=== PATIENT | female | born 1965 | race Caucasian/White ===

== ENCOUNTER 2018-06-17 21:15 | Observation (INO) ==
[2018-06-17] MEDS ORDERED: NORMAL SALINE 1,000 ML IV ONE ×2 (21:34→23:28)
[2018-06-17] MEDS ORDERED: ONDANSETRON HCL/PF 2 MG/ML VIAL IV ONE (21:42)
--- NOTE | 2018-06-17 21:48 | ERNOTE ---
Psychological HPI - Date Date of Service: 06/17/18 - General Source: Reports: patient, family - patient present to ed with c/o alcohol and liquid tide detergent - Immun/Allergies/Home Medications Allergies/Adverse Reactions: Allergies No Known Drug Allergies Allergy (Verified 06/17/18 22:33) Home Medications: HOME MEDICATIONS Unobtainable 06/17/18 [Last Taken Unknown] - History of Present Illness Time Seen by Provider: 06/17/18 21:26 Arrived by: Reports: private car Onset/duration: Reports: continues in ED Intent: Reports: prior thoughts of suicide, wants to escape Mechanism: Reports: ingestion Situational Problems: Reports: significant other Associated Symptoms: Reports: depressed, frustrated, suicidal thoughts, specific plan Prior Treament: Reports: similar symptoms before Review of Systems - Review of Systems Constitutional: Present: See HPI, weakness, fatigue, malaise EYE: Present: no symptoms reported ENT: Present: no symptoms reported Respiratory: Present: no symptoms reported Cardiology: Present: no symptoms reported Gastrointestinal/Abdominal: Present: See HPI Genitourinary: Present: no symptoms reported Musculoskeletal: Present: no symptoms reported Skin: Present: no symptoms reported Neurological: Present: depressed, emotional problems, dizziness/light- headedness, weakness Endocrine: Present: no symptoms reported Hematologic/Lymphatic: Present: no symptoms reported Psych: Present: See HPI, anxiety, depressed, emotional problems, other - overdose Medical History (Updated 06/17/18 @ 22:00 by Maryan Green RN) History of anxiety History of depression Hx of migraines Surgical History: Surgical History (Updated 06/17/18 @ 22:32 by Maryan Green RN) No pertinent past surgical history Family History: Family History (Updated 06/17/18 @ 22:33 by Maryan Green RN) Other No pertinent family history Social History: Smoking Status Current every day smoker Alcohol Use heavy Drug Use none No Social History Section defined Psychological Exam - Exam General Appearance: Present: moderate distress, anxious, lethargic Head Exam: Present: normal inspection, no evidence of injury Neurological: Present: elevator builder II-XII nml as tested, depressed affect Thoughts/Hallucinations: Present: other - depressed affect, states she wants to Behavior/Eye Contact/Speech: Present: avoids eye contact, decreased rate of speech ENT Exam normal except (see below): Yes Eye Exam: Normal inspection: bilateral, PERRL: bilateral, EOMI: bilateral Ears, Nose, Throat: Present: dry mucous membranes, other - fruity breath smell Neck: Present: normal inspection, nontender Respiratory: Present: no respiratory distress, normal breath sounds, no accessory muscle use, chest nontender, lungs clear Cardiovascular/Chest: Present: regular rate, rhythm, no murmur, normal peripheral pulses Peripheral Pulses: Carotid (R): Normal, Carotid (L): Normal, Radial (R): Normal, Radial (L): Normal, Brachial (R): Normal, Brachial (L): Normal, Femoral (R): Normal, Femoral (L): Normal, Posterior tib (R): Normal, Posterior tib (L): Normal, Dorsalis-pedis (R): Normal, Dorsalis-pedis (L): Normal Gastrointestinal/Abdominal: Present: normal bowel sounds, nontender, nondistended, soft, no organomegaly Back Exam: Present: normal inspection, normal range of motion, no CVA tenderness, no vertebral tenderness Extremity Exam: Present: normal except - - multiple excoriation to upper and lower extremities Skin Exam: Present: normal color, warm/dry, no cyanosis Lymphatic Exam: Present: no adenopathy Progress - Date and Time Seen: Date and Time: 06/17/18 22:41 patient improved, discussed case with dr edmonds to be admitted - Results and Orders Patient's Lab Results:: I have reviewed the patient's lab results. - Vital Signs Patient's Vital Signs:: I have reviewed the patient's vital signs. Vital Signs: Vital Signs 06/17/18 21:30 Temperature 36.8 C Pulse Rate 88 Respiratory Rate 19 Blood Pressure 129/86 O2 Sat by Pulse Oximetry 98 - EKG EKG #1 EKG: NSR EKG read: Interp. by me - X-Ray X-Ray #1 X-Ray: chest Interpretation: Interp. by fl - copd, no acute process - Progress/Reassessment Progress:: Improved - Transfer of Care Expected Disposition: Admit Time Seen by Provider: 06/17/18 21:26 Plan - Plan Plan: to be admitted Departure Clinical Impression: Overdose - Departure Disposition: Still a patient Condition: Serious
[2018-06-17 21:54] LABS: Hematocrit 43.1 % (37.0-47.0); Hemoglobin 14.6 gm/dL (12.5-16.0); Mean Cell Volume 93.3 fl (78-100); Mean Corpuscular Hemoglobin 31.6 pg (27-31); Mean Corpuscular Hgb Conc 33.9 g/dl (32-36); Mean Platelet Volume 8.4 fl (8-12.5); Neutrophil # 15.9 K/mm3 (1.3-6.0); Neutrophil % 85.6 % (42-75.0); Platelet Count 468 K/mm3 (150-450); Red Blood Count 4.62 M/mm3 (4.2-5.4); Red Cell Distribution Width 14.1 % (11.5-14.0); White Blood Count 18.6 K/mm3 (4.0-10.5)
[2018-06-17 22:04] LABS: Urine Bilirubin 1 mg/dl (NEGATIVE); Urine Blood 50 /ul (NEGATIVE); Urine Ketone 15 mg/dL (NEGATIVE); Urine Nitrite Negative (NEGATIVE); Urine Protein 100 mg/dL (NEGATIVE); Urine Specific Gravity >=1.030 SP.GR. (1.005-1.010); Urine Urobilinogen Normal (NORMAL); Urine pH 5.5 pH (5.0-7.0)
[2018-06-17 22:13] LABS: ALT 28 U/L (19-67); AST 38 U/L (0-48); Albumin * 4.3 gm/dl (3.4-5.0); Alkaline Phosphatase * 75 U/L (50-170); Anion Gap 19.4 mmol/L (6.8-13.8); BUN/Creatinine Ratio 13.2 (9.0-21.6); Bilirubin, Total 0.4 mg/dL (0.0-1.1); Blood Urea Nitrogen 29 mg/dL (3-23); CK Total * 97 U/L (0-259); Ca. Corrected For Albumin 9.5 mg/dL (8.4-10.2); Calcium * 10.1 mg/dL (7.9-10.9); Chloride 100 mmol/L (97-106); Glucose * 211 mg/dL (70-110); Potassium 3.4 mmol/L (3.4-4.6); Salicylate Less than 2.8 mg/dL (2.8-20.0); Sodium 141 mmol/L (132-142); Total Protein 7.8 gm/dL (6.2-8.2)
[2018-06-17 22:15] LABS: Cocaine Ur Negative (NEGATIVE); Urine Barbiturate Negative (NEGATIVE); Urine Benzodiazepines Negative (NEGATIVE); Urine PCP Negative (NEGATIVE); Urine THC Negative (NEGATIVE)
[2018-06-17 22:16] LABS: Urine Opiates Positive (NEGATIVE)
[2018-06-17 22:16] LABS: Amylase * 120 U/L (25-115); Lipase 116 U/L (73-393)
[2018-06-17 22:21] LABS: Urine Appearance Clear (CLEAR); Urine Color Yellow; Urine WBC 0-5 /hpf (0-5)
[2018-06-17 22:22] LABS: Urine Bacteria 2+; Urine Hyaline Cast 0-5 /LPF; Urine Mucus Moderate - 2+
[2018-06-17] MEDS: NORMAL SALINE 1,000 ML IV PRN (22:59)
[2018-06-18] MEDS: CIPROFLOXACIN IN 5 % DEXTROSE 200 MG/100 ML BAG IV SCH ×2 (00:44→09:10)
[2018-06-18 05:37] LABS: Anion Gap 13.3 mmol/L (6.8-13.8); BUN/Creatinine Ratio 13.5 (9.0-21.6); Blood Urea Nitrogen 21 mg/dL (3-23); Calcium * 7.8 mg/dL (7.9-10.9); Carbon Dioxide 24.9 mmol/L (24-32.6); Chloride 109 mmol/L (97-106); Estimated Creat Clear 36.9; Glucose * 122 mg/dL (70-110); Potassium 3.2 mmol/L (3.4-4.6); Sodium 144 mmol/L (132-142); Troponin I Less than 0.017 ng/mL (0.00-0.10)
[2018-06-18] MEDS ORDERED: LOPERAMIDE HCL 2 MG CAPSULE PO PRN (06:06)
[2018-06-18] MEDS ORDERED: LORazepam 2 MG/ML DISP.SYRIN IM ONE (06:18)
[2018-06-18] MEDS ORDERED: NORMAL SALINE 1,000 ML IV ONE (06:27)
--- NOTE | 2018-06-18 06:55 | HP ---
Chief Complaint - Chief Complaint Date of Service: 06/18/18 Time of Service: 06:28 Chief Complaint: I had a panic attack and anxiety, and attempted to take my own life History of Present Illness: 53-year-old female with past medical history of depression, anxiety disorder, panic disorder, migraine headaches, alcohol abuse, suicide attempt, cigarette smoker was brought to our ER and ambulance due to an apparent suicide attempt that occurred last night at home. Patient reports that she lives with her 23-year-old son who was not home at the moment. She reports that she went into a panic attack and did not have access to her usual medications because she had lost some couple of days prior. When asked where she lost her medication patient reports that she is not sure but she suspects that she lost them while walking outside her home. So as a panic attack progressed she resorted to drinking alcohol to alleviate her symptoms, she reports that when that did not work she consumed a unknown amount of liquid Tide detergent in an attempt to take her life at the moment. Patient's son then came into this cover her somnolent, intoxicated, and not her usual self. Patient admits to multiple suicide attempts in her past and has an extensive psychiatric history, she is under the care of a psychiatrist in [facility] who prescribes her anxiolytics and antidepressants. Patient admits to not seeing a PCP in many years and is not very knowledgeable about her health. She appears disheveled and thin and malnourished. Medical History (Updated 06/17/18 @ 22:43 by Benjy Cline DO) History of anxiety History of depression Hx of migraines Surgical History: Surgical History (Updated 06/17/18 @ 22:43 by Benjy Cline DO) No pertinent past surgical history Family History: Family History (Updated 06/17/18 @ 22:33 by Maryan Green RN) Other No pertinent family history Social History: Patient Lives/Resources Home Utilized Preferred Language Romansh Do you have any voodoo or Yes: Adventism cultural preference? Smoking Status Current every day smoker Have you smoked in the past 12 Yes months Alcohol Use heavy Drug Use none No Social History Section defined Peds Patient Hx - Developmental: No Pertinent Hx Peds Patient Hx - Medical: No Pertinent Hx Peds Patient Hx - Cardiac/Respiratory: No Pertinent Hx Peds Patient Hx - Surgical: No Surgical History Patient History - Cancer: No Hx of Cancer Review Of Systems (GEN) - Review of Systems Generalized/Overall Review: Present: Weakness EENTM: Present: No Symptoms Reported Respiratory: Present: No Symptoms Reported Cardiac: Present: No Symptoms Reported Abdominal: Present: Nausea Genitourinary: Present: No Symptoms Reported Musculoskeletal: Present: No Symptoms Reported Neurological: Present: Anxiety, Depressed, Emotional Problems Skin: Present: No Symptoms Reported Endocrine: Present: No Symptoms Reported Misc: All systems neg except as marked Immunizations: IMMUNIZATION HX Immunizations Up to Date No History of Influenza Vaccine No Allergies/Adverse Reactions: Allergies Allergy/AdvReac Type Severity Reaction Status Date / Time No Known Drug Allergies Allergy Verified 06/17/18 22:33 Home Medications: HOME MEDICATIONS Unobtainable 06/17/18 [Last Taken Unknown] Exam - Exam Vital Signs: Vital Signs - Last Taken Temp 36.8 C 06/18/18 04:07 Pulse 75 06/18/18 05:00 Resp 16 06/18/18 05:00 BP 120/79 06/18/18 05:00 Pulse Ox 99 06/18/18 05:00 Constitutional: Present: Alert, Oriented x3, Cooperative, Well developed, Mild distress, Thin and frail, Looks Older than stated age ENT Exam: Present: normal ENT inspection, hearing grossly normal, pharynx normal, TMs normal Eye Exam: bilateral eye: normal inspection, PERRL, EOMI Neck: Present: non-tender, full range of motion, supple, normal inspection, trachea midline Back Exam: Present: normal inspection, no CVA tenderness, no vertebral tenderness Breasts: Present: Exam deferred Respiratory: Present: chest non-tender, lungs clear, normal breath sounds, no respiratory distress, no accessory muscle use Cardiovascular/Chest: Present: normal peripheral pulses, regular rate, rhythm, no chest tenderness, no edema, no gallop, no JVD, no murmur Peripheral Pulses: carotid (R): 3+, carotid (L): 3+, femoral (R): 3+, femoral (L): 3+ Abdomen: Present: soft, nontender, nondistended, no rebound tenderness, no masses, other - Hyperactive bowel sounds /Rectal: Present: Exam deferred, Adnexa nontender Extremity: Present: normal range of motion, non-tender, normal inspection, no pedal edema, no calf tenderness, normal capillary refill, pelvis stable Skin Exam: Present: normal color, warm/dry, no cyanosis, other - Scattered punctate lesions with excoriations on upper and lower extremities Lymphatic: Present: no adenopathy Diagnostic Studies: Abnormal Lab Results 06/17/18 06/17/18 06/17/18 Range/Units 21:50 21:50 21:50 WBC 18.6 H (4.0-10.5) K/mm3 MCH 31.6 H (27-31) pg RDW 14.1 H (11.5-14.0) % Plt Count 468 H (150-450) K/mm3 Immature Gran # (Auto) 0.08 H (0.000-0.0310) K/mm3 Neutrophils % 85.6 H (42-75.0) % Lymphocytes % 9.0 L (20-51) % Neutrophils # 15.9 H (1.3-6.0) K/mm3 pCO2 (32.0-45.0) mmHg ABG pH (7.35-7.45) Sodium (132-142) mmol/L Plasma Sodium 143 H (130-142) mmol/L Potassium (3.4-4.6) mmol/L Chloride (97-106) mmol/L Anion Gap 19.4 H (6.8-13.8) mmol/L BUN 29 H (3-23) mg/dL Creatinine 2.20 H (0.4-1.4) mg/dL Est GFR (Non-Af Amer) 25 L (60-130) mL/min Random Glucose 211 H (70-110) mg/dL Calcium (7.9-10.9) mg/dL Amylase 120 H (25-115) U/L Urine Protein (NEGATIVE) mg/dL Urine Blood (NEGATIVE) /ul Urine Bilirubin (NEGATIVE) mg/dl Prot Sulfosalicylic Acd (0) mg/dL Urine RBC (0-5) /hpf Ur Epithelial Cells (0-5) /hpf Urine Bacteria (NONE) Hyaline Casts (NONE) /LPF Urine Mucus (NONE) Salicylates Less than 2.8 L (2.8-20.0) mg/dL Urine Opiates Screen (NEGATIVE) Acetaminophen Less than 0.2 L (10.0-30.0) mcg/mL 06/17/18 06/17/18 06/17/18 Range/Units 21:58 21:58 22:09 WBC (4.0-10.5) K/mm3 MCH (27-31) pg RDW (11.5-14.0) % Plt Count (150-450) K/mm3 Immature Gran # (Auto) (0.000-0.0310) K/mm3 Neutrophils % (42-75.0) % Lymphocytes % (20-51) % Neutrophils # (1.3-6.0) K/mm3 pCO2 30.3 L (32.0-45.0) mmHg ABG pH 7.47 H (7.35-7.45) Sodium (132-142) mmol/L Plasma Sodium (130-142) mmol/L Potassium (3.4-4.6) mmol/L Chloride (97-106) mmol/L Anion Gap (6.8-13.8) mmol/L BUN (3-23) mg/dL Creatinine (0.4-1.4) mg/dL Est GFR (Non-Af Amer) (60-130) mL/min Random Glucose (70-110) mg/dL Calcium (7.9-10.9) mg/dL Amylase (25-115) U/L Urine Protein 100 H (NEGATIVE) mg/dL Urine Blood 50 H (NEGATIVE) /ul Urine Bilirubin 1 H (NEGATIVE) mg/dl Prot Sulfosalicylic Acd 2+ H (0) mg/dL Urine RBC 5-10 H (0-5) /hpf Ur Epithelial Cells 5-10 H (0-5) /hpf Urine Bacteria 2+ H (NONE) Hyaline Casts 0-5 H (NONE) /LPF Urine Mucus Moderate - 2+ H (NONE) Salicylates (2.8-20.0) mg/dL Urine Opiates Screen Positive H (NEGATIVE) Acetaminophen (10.0-30.0) mcg/mL 06/18/18 Range/Units 05:15 WBC (4.0-10.5) K/mm3 MCH (27-31) pg RDW (11.5-14.0) % Plt Count (150-450) K/mm3 Immature Gran # (Auto) (0.000-0.0310) K/mm3 Neutrophils % (42-75.0) % Lymphocytes % (20-51) % Neutrophils # (1.3-6.0) K/mm3 pCO2 (32.0-45.0) mmHg ABG pH (7.35-7.45) Sodium 144 H (132-142) mmol/L Plasma Sodium 144 H (130-142) mmol/L Potassium 3.2 L (3.4-4.6) mmol/L Chloride 109 H (97-106) mmol/L Anion Gap (6.8-13.8) mmol/L BUN (3-23) mg/dL Creatinine 1.55 H D (0.4-1.4) mg/dL Est GFR (Non-Af Amer) 37 L D (60-130) mL/min Random Glucose 122 H D (70-110) mg/dL Calcium 7.8 L (7.9-10.9) mg/dL Amylase (25-115) U/L Urine Protein (NEGATIVE) mg/dL Urine Blood (NEGATIVE) /ul Urine Bilirubin (NEGATIVE) mg/dl Prot Sulfosalicylic Acd (0) mg/dL Urine RBC (0-5) /hpf Ur Epithelial Cells (0-5) /hpf Urine Bacteria (NONE) Hyaline Casts (NONE) /LPF Urine Mucus (NONE) Salicylates (2.8-20.0) mg/dL Urine Opiates Screen (NEGATIVE) Acetaminophen (10.0-30.0) mcg/mL Laboratory Results WBC 18.6 K/mm3 (4.0-10.5) H 06/17/18 21:50 RBC 4.62 M/mm3 (4.2-5.4) 06/17/18 21:50 Hgb 14.6 gm/dL (12.5-16.0) 06/17/18 21:50 Hct 43.1 % (37.0-47.0) 06/17/18 21:50 MCV 93.3 fl (78-100) 06/17/18 21:50 MCH 31.6 pg (27-31) H 06/17/18 21:50 MCHC 33.9 g/dl (32-36) 06/17/18 21:50 RDW 14.1 % (11.5-14.0) H 06/17/18 21:50 Plt Count 468 K/mm3 (150-450) H 06/17/18 21:50 MPV 8.4 fl (8-12.5) 06/17/18 21:50 Immature Gran % (Auto) 0.40 % (0.001-0.429) 06/17/18 21:50 Immature Gran # (Auto) 0.08 K/mm3 (0.000-0.0310) H 06/17/18 21:50 85.6 % (42-75.0) H 06/17/18 21:50 9.0 % (20-51) L 06/17/18 21:50 4.8 % (0.0-9) 06/17/18 21:50 0.0 % (0.0-3.0) 06/17/18 21:50 0.2 % (0.0-1.0) 06/17/18 21:50 Nucleated RBC % 0.0 k/mm3 (0-1) 06/17/18 21:50 15.9 K/mm3 (1.3-6.0) H 06/17/18 21:50 1.67 k/mm3 (1.5-3.5) 06/17/18 21:50 0.9 k/mm3 (0.0-1.0) 06/17/18 21:50 0.0 k/mm3 (0.0-0.7) 06/17/18 21:50 Absolute Basophils 0.0 k/mm3 (0.0-0.1) 06/17/18 21:50 pCO2 30.3 mmHg (32.0-45.0) L 06/17/18 22:09 pO2 84.2 mmHg (83.0-108.0) 06/17/18 22:09 HCO3 21.5 mmol/L (21.0-28.0) 06/17/18 22:09 Total CO2 22.4 mmol/L (19.0-24.0) 06/17/18 22:09 Base Excess -1.2 mmol/L (-2.0-3.0) 06/17/18 22:09 ABG pH 7.47 (7.35-7.45) H 06/17/18 22:09 ABG O2 Sat (Measured) 97.0 % (94.0-98.0) 06/17/18 22:09 Sodium 144 mmol/L (132-142) H 06/18/18 05:15 144 mmol/L (130-142) H 06/18/18 05:15 Potassium 3.2 mmol/L (3.4-4.6) L 06/18/18 05:15 Chloride 109 mmol/L (97-106) H 06/18/18 05:15 Carbon Dioxide 24.9 mmol/L (24-32.6) 06/18/18 05:15 13.3 mmol/L (6.8-13.8) 06/18/18 05:15 BUN 21 mg/dL (3-23) 06/18/18 05:15 1.55 mg/dL (0.4-1.4) H D 06/18/18 05:15 Est GFR (Non-Af Amer) 37 mL/min (60-130) L D 06/18/18 05:15 13.5 (9.0-21.6) 06/18/18 05:15 122 mg/dL (70-110) H D 06/18/18 05:15 Calcium 7.8 mg/dL (7.9-10.9) L 06/18/18 05:15 Calcium Adj for Albumin 9.5 mg/dL (8.4-10.2) 06/17/18 21:50 Magnesium 2.0 mg/dL (1.2-2.8) 06/18/18 05:15 0.4 mg/dL (0.0-1.1) 06/17/18 21:50 AST 38 U/L (0-48) 06/17/18 21:50 ALT 28 U/L (19-67) 06/17/18 21:50 75 U/L (50-170) 06/17/18 21:50 97 U/L (0-259) 06/17/18 21:50 Less than 0.017 ng/mL (0.00-0.10) 06/18/18 05:15 7.8 gm/dL (6.2-8.2) 06/17/18 21:50 4.3 gm/dl (3.4-5.0) 06/17/18 21:50 Amylase 120 U/L (25-115) H 06/17/18 21:50 116 U/L (73-393) 06/17/18 21:50 Yellow 06/17/18 21:58 Clear (CLEAR) 06/17/18 21:58 5.5 pH (5.0-7.0) 06/17/18 21:58 Ur Specific [place] >=1.030 SP.GR. (1.005-1.010) 06/17/18 21:58 100 mg/dL (NEGATIVE) H 06/17/18 21:58 Negative mg/dL (NEGATIVE) 06/17/18 21:58 15 mg/dL (NEGATIVE) 06/17/18 21:58 50 /ul (NEGATIVE) H 06/17/18 21:58 Negative (NEGATIVE) 06/17/18 21:58 1 mg/dl (NEGATIVE) H 06/17/18 21:58 Negative (NEGATIVE) 06/17/18 21:58 Prot Sulfosalicylic Acd 2+ mg/dL (0) H 06/17/18 21:58 Normal EU/dl (NORMAL) 06/17/18 21:58 Ur Leukocyte Esterase Negative /ul (NEGATIVE) 06/17/18 21:58 5-10 /hpf (0-5) H 06/17/18 21:58 0-5 /hpf (0-5) 06/17/18 21:58 Ur Epithelial Cells 5-10 /hpf (0-5) H 06/17/18 21:58 2+ (NONE) H 06/17/18 21:58 Hyaline Casts 0-5 /LPF (NONE) H 06/17/18 21:58 Moderate - 2+ (NONE) H 06/17/18 21:58 Culture to follow 06/17/18 21:58 Salicylates Less than 2.8 mg/dL (2.8-20.0) L 06/17/18 21:50 Positive (NEGATIVE) H 06/17/18 21:58 Acetaminophen Less than 0.2 mcg/mL (10.0-30.0) L 06/17/18 21:50 Negative (NEGATIVE) 06/17/18 21:58 Ur Phencyclidine Scrn Negative (NEGATIVE) 06/17/18 21:58 Urine Amphetamine Negative (NEGATIVE) 06/17/18 21:58 U Benzodiazepines Scrn Negative (NEGATIVE) 06/17/18 21:58 Negative (NEGATIVE) 06/17/18 21:58 Negative (NEGATIVE) 06/17/18 21:58 Ethyl Alcohol Less than 3.0 mg/dL (0.0-10.0) 06/17/18 21:50 Assessment/Plan - Narrative Narrative: Patient was evaluated and the medical chart was reviewed and decision to admit to the special care unit with a diagnosis of suicide attempt, acute kidney injury, electrolyte imbalance was taken. Patient is not knowledgeable about her past medical history and admits that she has not seen a primary care doctor multiple years, we we also do not have access to her medical records to determine what her baseline GFR is. Therefore we will treat patient with aggressive IV hydration to treat her renal failure and dehydration. Patient will be placed on mailing clerk and placed on suicide precautions while in SCU. Will also administer antidiarrheals to treat ongoing diarrhea and administer potassium chloride to treat hypokalemia. Psych consult will be requested for further evaluation the patient to determine the next course of action as far as her psychiatric issues. - Assessment/Plan (1) Suicide attempt Problem: Acute (2) Panic attack Problem: Acute (3) Panic disorder Problem: Chronic (4) Depression Problem: Chronic (5) Hypokalemia Problem: Acute (6) Electrolyte imbalance Problem: Acute (7) MIRNA (acute kidney injury) Problem: Acute (8) SIRS (systemic inflammatory response syndrome) Problem: Acute
[2018-06-18] MEDS: POTASSIUM CHLORIDE IN WATER 100 ML IV SCH ×3 (07:10→08:42)
[2018-06-18] MEDS: NORMAL SALINE 1,000 ML IV PRN ×2 (07:36→16:35)
[2018-06-18 08:12] LABS: Hematocrit 36.8 % (37.0-47.0); Hemoglobin 12.2 gm/dL (12.5-16.0); Mean Cell Volume 94.8 fl (78-100); Mean Corpuscular Hemoglobin 31.4 pg (27-31); Mean Corpuscular Hgb Conc 33.2 g/dl (32-36); Mean Platelet Volume 8.4 fl (8-12.5); Neutrophil # 6.8 K/mm3 (1.3-6.0); Neutrophil % 72.9 % (42-75.0); Platelet Count 330 K/mm3 (150-450); Red Blood Count 3.88 M/mm3 (4.2-5.4); Red Cell Distribution Width 14.2 % (11.5-14.0); White Blood Count 9.3 K/mm3 (4.0-10.5)
[2018-06-18 08:21] LABS: Albumin * 3.1 gm/dl (3.4-5.0); Anion Gap 14.1 mmol/L (6.8-13.8); BUN/Creatinine Ratio 11.1 (9.0-21.6); Bilirubin, Total 0.3 mg/dL (0.0-1.1); Calcium * 7.6 mg/dL (7.9-10.9); Carbon Dioxide 24.6 mmol/L (24-32.6); Potassium 3.7 mmol/L (3.4-4.6); Total Protein 5.8 gm/dL (6.2-8.2)
[2018-06-18] MEDS: THIAMINE HCL 100 MG/ML VIAL IM SCH (09:11)
[2018-06-18] MEDS: LORazepam 0.5 MG TABLET PO PRN ×2 (11:23→23:31)
[2018-06-18] MEDS: hydrOXYzine HCL 25 MG TABLET PO PRN ×2 (11:23→19:29)
[2018-06-18] MEDS: NICOTINE 14 MG PATC TD SCH (12:55)
--- NOTE | 2018-06-18 13:50 | CONS ---
[facility] Date of Service: 06/18/18 Narrative: Patient is a 53 year old female with a reported history of panic disorder, generalized anxiety disorder, methamphetamine abuse, alcohol abuse, and major depressive disorder who presented to the emergency department on 06/17/18 after she ingested tide and rubbing alcohol in an attempt to commit suicide. Patient reports she was trying to kill herself because she couldn't handle her anxiety, panic attacks, and depression any longer. She reports she sees Dr. Lopez, a psychiatrist in [place], and he has prescribed her hydroxyzine, lorazepam, Trintellix, and Wellbutrin. Patient states she stopped taking Wellbutrin several weeks ago due to side effects. She states she also stopped taking Trintellix a couple weeks ago because she thought she it wasn't working. She then admits that she knows she did not take Trintellix long enough for it to work. She reports she last saw Dr. Lopez approximately 3 months ago. At last visit, Dr. Lopez reduced her lorazepam from TID to BID. When asked why Dr. Lopez reduced lorazepam frequency, patient states she doesn't know and she doesn't like Dr. Lopez because he keeps trying to reduce her lorazepam dose. Patient denies overusing lorazepam and denies requesting early refills of lorazepam. Patient states she would never overuse her lorazepam. Patient does note that she has been out of her lorazepam for several weeks because she lost it. She states she is not sure how she lost her lorazepam. She also states she does not frequently lose her lorazepam. Patient states her anxiety has been out of control because she ran out of her lorazepam. She also reports feeling severely depressed, losing interest in things, and having no motivation. She states a friend of hers gave her 20 hydrocodone and she has been taking one hydrocodone every few days to help decrease her anxiety. Patient also states she has been drinking more alcohol to help her cope with her anxiety and depression. Patient states she used to have a drinking problem and received alcohol abuse treatment many years ago. She states she doesn't have a drinking problem now and she only drinks when she is anxious. She also endorses feeling anxious every day and experiencing panic attacks every day. She is unable to provide an amount of alcohol she typically drinks. She states she drinks until she blacks out because she can't deal with her anxiety and depression. Patient states she has drank alcohol three times in the past two weeks. Patient reports she used to use methamphetamine and cocaine in her 20's. She denies ever receiving treatment to stop. She denies current use of illicit drugs aside from taking her friends hydrocodone every few days. Patient states she has been having frequent suicidal thoughts. She will not provide a specific plan. She states she does want to . She states she will not continue to live with this much anxiety and depression. Patient denies homicidal ideation. Patient does state she has been having difficulty sleeping. She states Dr. Lopez gives her 15 Ambien per month. She states Ambien helps with sleep. She reports her appetite is decreased. She is unsure if she has lost any weight recently. - History of Present Illness Allergies/Adverse Reactions: Allergies No Known Drug Allergies Allergy (Verified 06/17/18 22:33) Home Medications: Home Medications Medication Instructions Recorded Last Taken Bupropion HCl [Bupropion Xl] 450 mg PO DAILY 06/18/18 Unknown Hydroxyzine HCl 50 mg PO Q8H PRN 06/18/18 Unknown Hydroxyzine HCl 50 mg PO QID 06/18/18 Unknown LORazepam [Ativan] 0.5 mg PO Q12H PRN 06/18/18 Unknown Vortioxetine Hydrobromide 20 mg PO DAILY 06/18/18 Unknown [Trintellix] Zolpidem Tartrate [Ambien] 10 mg PO HS PRN 06/18/18 Unknown Medications - Medications Current Medications: Current Medications Hydroxyzine HCl (Atarax) 50 mg PO Q8H PRN PRN Reason: Anxiety Last Admin: 06/18/18 11:23 Dose: 50 mg Documented by: Sodium Chloride (Sodium Chloride 0.9%) 1,000 mls @ 125 mls/hr IV .Q8H PRN PRN Reason: HYDRATION Stop: 07/17/18 22:50 Last Admin: 06/18/18 07:36 Dose: 125 mls/hr Documented by: Ciprofloxacin/Dextrose (Cipro) 200 mg in 100 mls @ 100 mls/hr IV DAILY [facility]; Protocol Stop: 07/17/18 23:36 Last Infusion: 06/18/18 10:10 Dose: Infused Documented by: Loperamide HCl (Imodium) 2 mg PO PRN PRN PRN Reason: Diarrhea Stop: 07/18/18 06:07 Last Admin: 06/18/18 06:45 Dose: 2 mg Documented by: Lorazepam (Ativan) 0.5 mg PO Q12H PRN PRN Reason: Anxiety Stop: 07/18/18 10:56 Last Admin: 06/18/18 11:23 Dose: 0.5 mg Documented by: Nicotine (Nicoderm) 14 mg TD Q24H [facility] Stop: 07/18/18 12:46 Last Admin: 06/18/18 12:55 Dose: 14 mg Documented by: Thiamine HCl (Vitamin B-1) 100 mg IM DAILY [facility] Stop: 07/18/18 09:01 Last Admin: 06/18/18 09:11 Dose: 100 mg Documented by: Review of Systems - Review of Systems Generalized/Overall Review: Present: No Symptoms Reported Abdominal: Present: Abdominal Pain Physical Examination - Exam Vital Signs: Vital Signs - Last Taken Temp 37.0 C 06/18/18 12:00 Pulse 99 06/18/18 12:00 Resp 16 06/18/18 12:00 BP 139/68 06/18/18 12:00 Pulse Ox 98 06/18/18 12:00 O2 Oxygen Delivery Method Room Air Constitutional: Present: Alert, Oriented x3 Neurologic: Present: alert, oriented x 3, depressed affect, other - Anxious affect Appearance: Present: disheveled, impaired insight Eye contact: Present: avoids eye contact Thoughts: Present: no apparent hallucination - Results and Findings: Narrative: Patient endorses continued suicidal ideation with intent. Patient is willing to be transferred for psychiatric hospitalization. Recommend inpatient hospitalization for suicidal ideation/intent. Will discontinue Wellbutrin as patient has not been taking this medication for the past several weeks and is contraindicated considering current renal function. Continue Trintellix. Start CIWA protocol. Lab/Microbiology results last 24 hrs: Abnormal/Pending Laboratory Last 24 HRS 06/18/18 06/18/18 06/18/18 08:00 08:00 05:15 WBC RBC 3.88 L Hgb 12.2 L Hct 36.8 L MCH 31.4 H RDW 14.2 H Plt Count Immature Gran # (Auto) Neutrophils % Lymphocytes % 19.7 L Neutrophils # 6.8 H pCO2 ABG pH Sodium 145 H 144 H Plasma Sodium 145 H 144 H Potassium 3.2 L Chloride 110 H 109 H Anion Gap 14.1 H BUN Creatinine 1.53 H 1.55 H D Est GFR (Non-Af Amer) 37 L 37 L D Random Glucose 122 H D Calcium 7.6 L 7.8 L Calcium Adj for Albumin 8.0 L AST 52 H Total Protein 5.8 L Albumin 3.1 L Amylase Urine Protein Urine Blood Urine Bilirubin Prot Sulfosalicylic Acd Urine RBC Ur Epithelial Cells Urine Bacteria Hyaline Casts Urine Mucus Salicylates Urine Opiates Screen Acetaminophen 06/17/18 06/17/18 06/17/18 22:09 21:58 21:58 WBC RBC Hgb Hct MCH RDW Plt Count Immature Gran # (Auto) Neutrophils % Lymphocytes % Neutrophils # pCO2 30.3 L ABG pH 7.47 H Sodium Plasma Sodium Potassium Chloride Anion Gap BUN Creatinine Est GFR (Non-Af Amer) Random Glucose Calcium Calcium Adj for Albumin AST Total Protein Albumin Amylase Urine Protein 100 H Urine Blood 50 H Urine Bilirubin 1 H Prot Sulfosalicylic Acd 2+ H Urine RBC 5-10 H Ur Epithelial Cells 5-10 H Urine Bacteria 2+ H Hyaline Casts 0-5 H Urine Mucus Moderate - 2+ H Salicylates Urine Opiates Screen Positive H Acetaminophen 06/17/18 06/17/18 06/17/18 21:50 21:50 21:50 WBC 18.6 H RBC Hgb Hct MCH 31.6 H RDW 14.1 H Plt Count 468 H Immature Gran # (Auto) 0.08 H Neutrophils % 85.6 H Lymphocytes % 9.0 L Neutrophils # 15.9 H pCO2 ABG pH Sodium Plasma Sodium 143 H Potassium Chloride Anion Gap 19.4 H BUN 29 H Creatinine 2.20 H Est GFR (Non-Af Amer) 25 L Random Glucose 211 H Calcium Calcium Adj for Albumin AST Total Protein Albumin Amylase 120 H Urine Protein Urine Blood Urine Bilirubin Prot Sulfosalicylic Acd Urine RBC Ur Epithelial Cells Urine Bacteria Hyaline Casts Urine Mucus Salicylates Less than 2.8 L Urine Opiates Screen Acetaminophen Less than 0.2 L - Assessments/Findings (1) Suicide attempt Problem: Acute (2) Panic disorder Problem: Chronic
[2018-06-18] MEDS ORDERED: LORazepam 0.5 MG TABLET PO ONE (15:52)
[2018-06-18] MEDS: ZOLPIDEM TARTRATE 10 MG TABLET PO PRN (20:13)
[2018-06-19] MEDS: NORMAL SALINE 1,000 ML IV PRN (00:39)
[2018-06-19] MEDS: hydrOXYzine HCL 25 MG TABLET PO PRN ×3 (03:35→19:17)
[2018-06-19] MEDS: ACETAMINOPHEN 325 MG TABLET PO PRN (07:55)
[2018-06-19] MEDS: VORTIOXETINE HYDROBROMIDE 20 MG PO SCH (08:31)
--- NOTE | 2018-06-19 08:34 | PN ---
Subjective - Date and Time Seen Date: 06/19/18 Time: 08:32 Subjective Narrative: Patient has no complaints. VS are stable. Objective - Review of Systems Generalized/Overall Review: Denies: Chills, Fever EENTM: Denies: Blurred Vision Respiratory: Denies: Cough, Shortness of Breath Cardiac: Denies: Chest Pain, Edema, Palpitations Abdominal: Denies: Nausea, Vomiting Genitourinary Symptoms: Denies: Urgency, Frequency Musculoskeletal Complaints: Denies: Joint Pain, Back Pain Neurological: Reports: Anxiety, Depressed Skin: Denies: Lesions, Rash Endocrine: Denies: Intolerance to Cold, Intolerance to Heat Misc: All systems neg except as marked - Vitals Vitals: Last Vital Signs Temp 36.7 C 06/19/18 08:29 Pulse 74 06/19/18 08:29 Resp 16 06/19/18 08:29 BP 142/87 H 06/19/18 08:29 Pulse Ox 97 06/19/18 08:29 - Abnormal Lab Findings Abnormal Lab Findings: Abnormal Lab Results 06/18/18 06/18/18 Range/Units 11:22 14:17 pCO2 31.9 L (32.0-45.0) mmHg TSH 0.098 L (0.358-3.74) uIU/mL - Exam Constitutional: Present: Alert, Oriented x3, Cooperative ENT Exam: Present: hearing grossly normal Neck: Present: supple Respiratory: Present: normal breath sounds, No rales, No wheezing Cardiovascular/Chest: Present: regular rate, rhythm, no JVD, no murmur Abdomen: Present: Normal bowel sounds, soft, nontender, nondistended Extremity: Present: no pedal edema, no calf tenderness Assessment/Plan Plan Narrative: awaiting placement. continue with present management. - Problems/Diagnosis (1) Overdose Problem: Acute (2) Panic attack Problem: Acute (3) Suicide attempt Problem: Acute (4) Depression Problem: Chronic
[2018-06-19] MEDS: CIPROFLOXACIN IN 5 % DEXTROSE 200 MG/100 ML BAG IV SCH (08:43)
[2018-06-19] MEDS ORDERED: ACETAMINOPHEN 500 MG TABLET PO ONE (08:46)
[2018-06-19] MEDS ORDERED: buPROPion HCL 150 MG TAB.SR.24H PO SCH (09:00)
[2018-06-19 09:02] LABS: BUN/Creatinine Ratio 12.5 (9.0-21.6); Calcium * 8.1 mg/dL (7.9-10.9); Carbon Dioxide 27.4 mmol/L (24-32.6); Potassium 3.4 mmol/L (3.4-4.6)
[2018-06-19] MEDS: POTASSIUM CHLORIDE 10 MEQ in 0.5 NORMAL SALINE 1,000 ML IV SCH ×2 (10:08→21:18)
[2018-06-19] MEDS: ONDANSETRON 4 MG TAB.RAPDIS PO PRN (10:13)
[2018-06-19] MEDS: LORazepam 0.5 MG TABLET PO PRN ×2 (10:17→22:25)
[2018-06-19] MEDS: THIAMINE HCL 100 MG/ML VIAL IM SCH (10:54)
[2018-06-19] MEDS: NICOTINE 14 MG PATC TD SCH (12:36)
[2018-06-19] MEDS: chlordiazePOXIDE HCL 25 MG CAPSULE PO PRN (14:29)
[2018-06-19] MEDS: ZOLPIDEM TARTRATE 10 MG TABLET PO PRN (19:16)
[2018-06-20] MEDS: chlordiazePOXIDE HCL 25 MG CAPSULE PO PRN ×2 (02:55→11:54)
[2018-06-20] MEDS: hydrOXYzine HCL 25 MG TABLET PO PRN ×2 (03:35→11:54)
[2018-06-20] MEDS: ONDANSETRON 4 MG TAB.RAPDIS PO PRN (03:36)
[2018-06-20] MEDS: VORTIOXETINE HYDROBROMIDE 20 MG PO SCH (08:18)
[2018-06-20] MEDS: THIAMINE HCL 100 MG/ML VIAL IM SCH (08:25)
--- NOTE | 2018-06-20 08:59 | PN ---
Subjective - Date and Time Seen Date: 06/20/18 Time: 08:56 Subjective Narrative: complaining of bad reflux. Objective - Review of Systems Generalized/Overall Review: Denies: Chills, Fever EENTM: Denies: Nose Congestion Respiratory: Denies: Cough, Shortness of Breath Cardiac: Denies: Chest Pain, Edema, Palpitations Abdominal: Reports: Other - dyspepsia. Denies: Nausea, Vomiting Genitourinary Symptoms: Denies: Urgency, Frequency, Incontinent Musculoskeletal Complaints: Reports: Back Pain. Denies: Joint Pain Neurological: Reports: Headache, Anxiety Skin: Denies: Lesions, Rash Endocrine: Denies: Intolerance to Cold, Intolerance to Heat Misc: All systems neg except as marked - Vitals Vitals: Last Vital Signs Temp 36.0 C 06/20/18 07:00 Pulse 76 06/20/18 07:00 Resp 16 06/20/18 07:00 BP 153/89 H 06/19/18 21:00 Pulse Ox 98 06/20/18 07:00 - Abnormal Lab Findings Abnormal Lab Findings: Abnormal Lab Results 06/18/18 06/19/18 Range/Units 05:15 08:48 Sodium 144 H (132-142) mmol/L Plasma Sodium 144 H (130-142) mmol/L Chloride 110 H (97-106) mmol/L Serum Osmolality 311 H mOsm/kg - Exam Constitutional: Present: Alert, Oriented x3, Cooperative ENT Exam: Present: hearing grossly normal Neck: Present: supple Respiratory: Present: normal breath sounds, No rales, No wheezing Cardiovascular/Chest: Present: regular rate, rhythm, no JVD, no murmur Abdomen: Present: Normal bowel sounds, soft, nontender, nondistended Extremity: Present: no pedal edema, no calf tenderness Assessment/Plan Plan Narrative: awaiting placement. UCS showed no growth. IVF and antibiotics stopped. - Problems/Diagnosis (1) Dyspepsia Problem: Acute Narrative: GERD like. start PPI. (2) Overdose Problem: Acute (3) Panic attack Problem: Acute (4) Suicide attempt Problem: Acute (5) Depression Problem: Chronic
--- NOTE | 2018-06-20 10:14 | DS ---
Transfer Discharge Summary - Diagnosis(s)/Problems (1) Suicide attempt Problem: Acute (2) Overdose Problem: Acute (3) Panic attack Problem: Acute (4) Depression Problem: Chronic (5) Dyspepsia Problem: Acute - Course Description of Stay: Barbara Delacruz is a 53-year-old female with past medical history of depression, anxiety disorder, panic disorder, migraine headaches, alcohol abuse, suicide attempt, cigarette smoker was brought to our ER by ambulance due to an apparent suicide attempt that occurred at home and was admittged on 06/18/2018. The patient reported that she lives with her 23-year-old son who was not home at the moment. She reported that she went into a panic attack and did not have access to her usual medications because she had lost some couple of days prior to admission. When asked where she lost her medication patient reported that she was not sure but she suspects that she lost them while walking outside her home. So as her panic attack progressed she resorted to drinking alcohol to alleviate her symptoms, she reported that when that did not work she consumed a unknown amount of liquid Tide detergent in an attempt to take her life at the moment. The patient's son then came home and discovered her somnolent, intoxicated, and not her usual self. The patient admits to multiple suicide attempts in her past and has an extensive psychiatric history. She is under the care of a psychiatrist in [facility] who prescribes her anxiolytics and antidepressants. The patient admits to not seeing a PCP in many years and is not very knowledgeable about her health. She appeared disheveled and thin and malnourished. She was admitted to our ICU and poison control was contacted. Her UDS was negative except for opiates. Ethyl alcohol was less than 3. She had leukocytosis and UA showed pyuria/bacteuira but with 5-10 epitjheliel cells like contamination. Nevertheless she was covered with Cipro. IVF were started and her dehydration and hypokalemia resolved. WBC went down to normal the following day. Her UCS showed No Growth. Her Cipro was stopped. She was seen and evaluated by our MOLDING MACHINE TENDER in Psychology and she recommended transfer to an in patient psych facility as she continues to have persistent suicidal thoughts/ideations and attempts. She is medically stable to be transferred. She is going to [facility] in [place], [place]. Procedures Performed: none - Results and Findings Results and Findings: Laboratory Results - last 24 hr 06/18/18 05:15 Serum Osmolality 311 H - Medications Medications: Active Medications Acetaminophen (Tylenol) 650 mg PO Q6H PRN PRN Reason: Mild pain (pain scale 1-3) Stop: 07/18/18 06:24 Last Admin: 06/19/18 07:55 Dose: 650 mg Documented by: Chlordiazepoxide HCl (Librium) 50 mg PO BID PRN PRN Reason: Alcohol Withdrawal Stop: 07/18/18 09:01 Last Admin: 06/20/18 02:55 Dose: 50 mg Documented by: Hydroxyzine HCl (Atarax) 50 mg PO Q8H PRN PRN Reason: Anxiety Last Admin: 06/20/18 03:35 Dose: 50 mg Documented by: Loperamide HCl (Imodium) 2 mg PO PRN PRN PRN Reason: Diarrhea Stop: 07/18/18 06:07 Last Admin: 06/18/18 06:45 Dose: 2 mg Documented by: Lorazepam (Ativan) 0.5 mg PO Q12H PRN PRN Reason: Anxiety Stop: 07/18/18 10:56 Last Admin: 06/19/18 22:25 Dose: 0.5 mg Documented by: Nicotine (Nicoderm) 14 mg TD Q24H [facility] Stop: 07/18/18 12:46 Last Admin: 06/19/18 12:36 Dose: 14 mg Documented by: Non-Formulary Medication (Vortioxetine Hydrobromide [Trintellix]) 20 mg PO DAILY [facility] Stop: 07/19/18 09:01 Last Admin: 06/20/18 08:18 Dose: Not Given Documented by: Ondansetron HCl (Zofran Odt) 4 mg PO Q4H PRN PRN Reason: Nausea And Vomiting Stop: 07/18/18 06:58 Last Admin: 06/20/18 03:36 Dose: 4 mg Documented by: Thiamine HCl (Vitamin B-1) 100 mg IM DAILY [facility] Stop: 07/18/18 09:01 Last Admin: 06/20/18 08:25 Dose: 100 mg Documented by: Zolpidem Tartrate (Ambien) 10 mg PO HS PRN PRN Reason: Insomnia Stop: 07/18/18 10:56 Last Admin: 06/19/18 19:16 Dose: 10 mg Documented by: Discontinued Medications Acetaminophen (Tylenol) 500 mg PO ONCE ONE Stop: 06/19/18 08:47 Last Admin: 06/19/18 08:57 Dose: 500 mg Documented by: Sodium Chloride (Sodium Chloride 0.9%) 1,000 mls @ 999 mls/hr IV .Q1H1M ONE Stop: 06/17/18 22:34 Last Infusion: 06/17/18 22:52 Dose: Infused Documented by: Sodium Chloride (Sodium Chloride 0.9%) 1,000 mls @ 125 mls/hr IV .Q8H PRN PRN Reason: HYDRATION Stop: 07/17/18 22:50 Last Infusion: 06/19/18 08:39 Dose: Infused Documented by: Sodium Chloride (Sodium Chloride 0.9%) 1,000 mls @ 999 mls/hr IV .Q1H1M ONE Stop: 06/18/18 00:28 Last Infusion: 06/18/18 00:52 Dose: 0 mls/hr Documented by: Ciprofloxacin/Dextrose (Cipro) 200 mg in 100 mls @ 100 mls/hr IV DAILY [facility]; Protocol Stop: 07/17/18 23:36 Last Infusion: 06/19/18 09:43 Dose: Infused Documented by: Potassium Chloride/Water (Kcl 10 Meq/100 Ml Piggyback) 100 mls @ 100 mls/hr IV Q1H [facility] Stop: 06/18/18 09:59 Last Infusion: 06/18/18 09:11 Dose: Infused Documented by: Sodium Chloride (Sodium Chloride 0.9%) 1,000 mls @ 999 mls/hr IV .Q1H1M ONE Stop: 06/18/18 07:27 Last Infusion: 06/18/18 07:37 Dose: Infused Documented by: Potassium Chloride 10 meq/ (Sodium Chloride) 1,005 mls @ 100 mls/hr IV .Q10H3M [facility] Stop: 07/19/18 08:46 Last Admin: 06/19/18 21:18 Dose: Not Given Documented by: Lorazepam (Ativan) 1 mg IM ONCE ONE Stop: 06/18/18 06:19 Last Admin: 06/18/18 06:51 Dose: 1 mg Documented by: Lorazepam (Ativan) 0.5 mg PO ONCE ONE Stop: 06/18/18 15:53 Last Admin: 06/18/18 16:01 Dose: 0.5 mg Documented by: Ondansetron HCl (Zofran) 4 mg IV ONCE ONE Stop: 06/17/18 21:43 Last Admin: 06/17/18 21:46 Dose: 4 mg Documented by: - Disposition Disposition: Psychiatric Hospital Condition: Stable Discharge Date: 06/20/18 Discharge Time: 11:30
[2018-06-20] MEDS: ACETAMINOPHEN 325 MG TABLET PO PRN (10:41)
[2018-06-20] MEDS: LORazepam 0.5 MG TABLET PO PRN (10:41)
[2018-06-20] MEDS ORDERED: LORazepam 1 MG TABLET PO ONE (11:45)
[2018-06-20 12:36] VITALS: BP 129/84
[2018-06-21] MEDS ORDERED: PANTOPRAZOLE SODIUM 20 MG TABLET.DR PO SCH (07:00)
== END 2018-06-20 12:00 ==
LOC: SCU 21:15 → ER 21:15 → SCU 23:45
PROVIDERS: ADMIT Family Medicine; ATTEND Family Medicine
DX: F41.0 Panic disorder [episodic paroxysmal anxiety]; F32.9 Major depressive disorder, single episode, unspecified; R94.31 Abnormal electrocardiogram [ECG] [EKG]; T50.901A Poisoning by unspecified drugs, medicaments and biological substances, accidental (unintentional), initial encounter; Z86.59 Personal history of other mental and behavioral disorders; R10.13 Epigastric pain
CPT/HCPCS: 36415; 36600; 51702; 71010; 71045; 80048; 80053; 80307; 80320; 80329; 81001; 82150; 82550; 82803; 83690; 83735; 83930; 84443; 84484; 85025; 87081; 87086; 93005; 94760; 96361; 96365; 96366; 96367; 96372; 96375; 99285; G0378; G0480; G0481; J2405